=== PATIENT | male | born 1975 | race Caucasian/White ===

== ENCOUNTER 2017-02-25 09:45 | Emergency (ER) | payer MEDICAID, OTHER ==
[~2017-02-25] VITALS: Wt 80.0 kg
--- NOTE | 2017-02-25 13:00 | ERD ---
ER Documentation Chief Complaint Date/Time DATE: 02/25/17 TIME: 12:56 Chief Complaint etoh with headache and shoulder pain . no trauma noted. alert and oriented HPI This 42-year-old male comes in after being found intoxicated in public. He reportedly complained of a headache and shoulder pain previously. To me he only says that he has left forearm pain that is been there for 3 weeks. He says it does not hurt when he does anything in particular and he denies any trauma to the area. Paramedics also there were no signs of trauma and he denies any other pain. He admits to drinking alcohol today and asked if he can get some rest. ROS All systems reviewed and are negative except as per history of present illness. PMhx/Soc Medical and Surgical Hx: pt denies Surgical Hx Hx Miscellaneous Medical Probl: Yes (ETOH ) Hx Alcohol Use: No Hx Substance Use: No Hx Tobacco Use: No Smoking Status: Never smoker Physical Exam Vitals Vital Signs Date Time Temp Pulse Resp B/P Pulse Ox O2 Delivery O2 Flow Rate FiO2 02/25/17 09:47 98.9 102 21 168/102 95 Physical Exam Const: [] No distress Head: Atraumatic Eyes: Normal Conjunctiva, EOMI, PRL ENT: Normal External Ears, Nose and Mouth. Neck: Full range of motion..~ No meningismus. Resp: Clear to auscultation bilaterally Cardio: Regular rate and rhythm, no murmurs Abd: Soft, non tender, non distended. Normal bowel sounds Skin: No petechiae or rashes Back: No midline or flank tenderness Ext: No cyanosis, or edema, left forearm with normal appearance distal pulses intact all 4 extremities with no deformities or signs of trauma peer Neur: Awake and alert and oriented 3, no slurred speech but does appear somewhat intoxicated, cranial nerves II through XII are intact he has no cerebellar deficits with a normal gait Psych: Normal Mood and Affect Procedures/MDM Acute alcohol intoxication. After patient was allowed to rest in the ER for 3 hours he denied any pain stated that he was just "boracho". He says he does not feel intoxicated any longer and would like to leave the emergency room. I see no injuries would require any imaging and I will discharge him with primary care follow-up in the next 2-3 days. It has been at least 3 minutes at the bedside talking about alcohol cessation. Departure Diagnosis: Primary Impression: Alcoholic intoxication Condition: Stable Patient Instructions: Alcohol Intoxication Referrals: [facility] YOU HAVE RECEIVED A MEDICAL SCREENING EXAM AND THE RESULTS INDICATE THAT YOU DO NOT HAVE A CONDITION THAT REQUIRES URGENT TREATMENT IN THE EMERGENCY DEPARTMENT. FURTHER EVALUATION AND TREATMENT OF YOUR CONDITION CAN WAIT UNTIL YOU ARE SEEN IN YOUR DOCTORS OFFICE WITHIN THE NEXT 1-2 DAYS. IT IS YOUR RESPONSIBILITY TO MAKE AN APPOINTMENT FOR FOLOW-UP CARE. IF YOU HAVE A PRIMARY DOCTOR --you should call your primary doctor and schedule an appointment IF YOU DO NOT HAVE A PRIMARY DOCTOR YOU CAN CALL OUR PHYSICIAN REFERRAL HOTLINE AT IF YOU CAN NOT AFFORD TO SEE A PHYSICIAN YOU CAN CHOSE FROM THE FOLLOWING [facility] [address] [facility] [address] [facility] [address] [facility] [address] [facility] [address] [facility]. [facility]. [address] Additional Instructions: Llame al doctor MAANA y anup abe BERT PARA DENTRO DE 2-3 BUCHANAN.Dgale a la secretaria que nosotros le instruimos hacer esta bert.Avise o llame si nuñez condicin se empeora antes de la bert. Regresa aqui si peor o no mejor. LORNA YOUSIF DO Feb 25, 2017 13:00
== END 2017-02-25 15:31 | disposition home or self-care (01) ==
LOC: E/R 09:45
DX: F10.129 Alcohol abuse with intoxication, unspecified (principal)
CPT/HCPCS: 99282